=== PATIENT | female | born 1960 | race Caucasian/White ===

== ENCOUNTER 2018-05-23 04:15 | Emergency (ER) | payer BC, OTHER ==
[2018-05-23 04:43] VITALS: BMI 24.3
--- NOTE | 2018-05-23 05:04 | PDOC ---
History of Present Illness - General Chief Complaint: Chest Pain Stated Complaint: CHEST PAIN Time Seen by Provider: 05/23/18 04:19 History Source: Patient Exam Limitations: No Limitations - History of Present Illness Initial Comments: 05/23/18 04:46 Pt is a 58yo F with PMH of hypothyroidism presenting to ED with complaints of chest pain that started at midnight and has kept the pt awake. Pt states chest pain is a sharp substernal intermittent pain that lasts for about 1 minute and radiates to the R breast and sometimes to the back. Not associated with SOB, diaphoresis, radiation to the arms, numbness, tingling, palpitations, headache, neck pain. She has never had chest pain like this before. Pt is not in active chest pain right now, and it has been 30 minutes since she last felt the pain. No significant family history of [place]. No history of blood clotting or GERD. PMH: hypothyroidism PSH: , R ovary and fallopian tube removal, appendectomy Meds: Synthroid Allergies: nkda Social: Quit tobacco in 1997. Denies alcohol, illicit drug use Past History - Past Medical History Allergies/Adverse Reactions: Allergies Allergy/AdvReac Type Severity Reaction Status Date / Time No Known Allergies Allergy Verified 05/23/18 04:43 Home Medications: Ambulatory Orders Levothyroxine [Synthroid -] 88 mcg PO DAILY 05/23/18 Metoprolol Tartrate [Lopressor] 50 mg PO DAILY 05/23/18 - Suicide/Smoking/Psychosocial Hx Smoking History: Never smoked Have you smoked in the past 12 months: No Information on smoking cessation initiated: No Hx Alcohol Use: No Drug/Substance Use Hx: No Review of Systems - Review of Systems Constitutional: No: Chills, Fever, Weakness HEENTM: No: Recent change in vision, Throat Pain Respiratory: No: Cough, Orthopnea, Shortness of Breath, SOB with Exertion Cardiac (ROS): Yes: Chest Pain, Chest Tightness. No: Lightheadedness, Palpitations, Syncope ABD/GI: No: Constipated, Diarrhea, Nausea, Vomiting, Abdominal cramping : No: Dysuria Musculoskeletal: No: Back Pain, Muscle Pain Neurological: No: Headache, Numbness, Tingling Endocrine: Yes: Intolerance to Cold *Physical Exam - Vital Signs Last Vital Signs Temp Pulse Resp BP Pulse Ox 97.9 F 64 19 136/79 4 L 05/23/18 04:41 05/23/18 04:41 05/23/18 04:41 05/23/18 04:41 05/23/18 04:41 - Physical Exam Comments: 05/23/18 05:18 Pt sitting comfortably in stretcher with by side General Appearance: Yes: Nourished, Appropriately Dressed. No: Apparent Distress HEENT: positive: EOMI, DAMARIS, Normal ENT Inspection, Pharynx Normal. negative: Pale Conjunctivae, Scleral Icterus (R), Scleral Icterus (L), Pharyngeal Erythema , Tonsillar Exudate Neck: positive: Trachea midline, Supple. negative: Lymphadenopathy (R), Lymphadenopathy (L) Respiratory/Chest: positive: Lungs Clear, Normal Breath Sounds. negative: Crackles, Rales, Rhonchi, Stridor Cardiovascular: positive: Regular Rhythm, Regular Rate, S1, S2. negative: JVD, Murmur Vascular Pulses: Carotid (R): 2+, Carotid (L): 2+, Dorsalis-Pedis (R): 2+, Doralis-Pedis (L): 2+ Gastrointestinal/Abdominal: positive: Normal Bowel Sounds, Soft. negative: Distended, Guarding, Rebound, Tenderness Musculoskeletal: negative: CVA Tenderness Extremity: positive: Normal Capillary Refill Integumentary: positive: Normal Color, Dry, Warm Neurologic: positive: shot hole shooter II-XII NML intact, Fully Oriented, Alert, Normal Mood/ Affect, Normal Response, Motor Strength 5/5 Heart Score/ECG Review - History History: Slightly suspicious - Electrocardiogram EKG: Normal - Age Age: 45-65 - Risk Factors Risk Factors Heart Score: Yes Smoking History Based on the list above the patient has:: 1-2 risk factors - Troponin Troponin: </= normal limit - Score Heart Score - Total: 2 ED Treatment Course - LABORATORY CBC & Chemistry Diagram: 05/23/18 04:55 05/23/18 04:55 - RADIOLOGY Radiology Studies Ordered: Category Date Time Status CHEST X-RAY PORTABLE* [RAD] Stat Radiology 05/23/18 04:22 Ordered Medical Decision Making - Medical Decision Making 05/23/18 05:10 Pt is a 58yo F with PMH of hypothyroidism presenting to ED with complaints of chest pain that started at midnight and has kept the pt awake. saturating 98% RA DDx: ACS, PNA, PTX, Dissection, Pericarditis, Cholelithiasis Low suspicion for infectious process because pt is hemodynamically stable, afebrile. No significant pmh of htn/hld/dm. symptoms are less consistent with ACS. Will do cardiac workup, ekg to rule out ACS. -Delta trop. -Initial EKG: sinus juancarlos, no T wave inversions, no ST elevations or depressions. Normal EKG. 05/23/18 05:16 Trop: <0.02 HEART: 2 all other labs wnl Awaiting 2nd trop, CXR. If normal, pt can be d/c home. She has PCP follow up and is hemodynamically stable. 05/23/18 07:[address] off to Dr. Yadav *DC/Admit/Observation/Transfer Diagnosis at time of Disposition: Chest pain Qualifiers: Chest pain type: unspecified Qualified Code(s): R07.9 - Chest pain, unspecified - Discharge Dispostion Disposition: HOME Condition at time of disposition: Good - Referrals Referrals: Amanuel Crews MD [Primary Care Provider] - - Patient Instructions Printed Discharge Instructions: DI for Chest Pain Additional Instructions: You were seen here today for evaluation of chest pain. We did some testing here in the ED and everything was normal. Please follow up with Dr. Crews for further evaluation within the next week. Please come back to the ED if: chest pain gets worse, you feel short of breath, you feel lightheaded, you lose consciousness, or if any new concerning symptom develops. Thank you - Post Discharge Activity
[2018-05-23 05:13] LABS: BASO % 0.8 % (0-2.0); EOS % 2.6 % (0-4.5); HEMATOCRIT 39.6 % (32.4-45.2); HEMOGLOBIN 13.8 GM/dL (10.7-15.3); LYMPH % 35.3 % (8-40); MCH 29.1 pg (25.7-33.7); MCHC 34.8 g/dl (32.0-36.0); MEAN CELL VOLUME 83.6 fl (80-96); MEAN PLT VOLUME 7.8 fl (7.5-11.1); MONO % 9.3 % (3.8-10.2); PLATELET COUNT 223 K/MM3 (134-434); RBC 4.73 M/mm3 (3.60-5.2); RDW 12.9 % (11.6-15.6); WHITE BLOOD COUNT 6.7 K/mm3 (4.0-10.0)
[2018-05-23 05:23] LABS: INR 0.96 (0.83-1.09); PROTHROMBIN TIME (PATIENT) 10.9 SEC (9.7-13.0)
[2018-05-23 05:32] LABS: ALBUMIN 3.8 g/dl (3.4-5.0); ALK PHOS 67 U/L (45-117); ANION GAP 5 MMOL/L (8-16); BILIRUBIN,TOTAL 0.3 mg/dL (0.2-1.0); BLOOD UREA NITROGEN 22 mg/dL (7-18); CALCIUM 8.6 mg/dL (8.5-10.1); CHLORIDE 108 mmol/L (98-107); CO2 28 mmol/L (21-32); CREATININE 0.6 mg/dL (0.55-1.02); GLUCOSE,RANDOM 105 mg/dL (74-106); SGOT/AST 11 U/L (15-37); SGPT/ALT 17 U/L (12-78); SODIUM 141 mmol/L (136-145); TOT PROT 6.7 g/dl (6.4-8.2)
--- NOTE | 2018-05-23 05:35 | PDOC ---
Attending Attestation - Resident Resident Name: LaurenKymberly - ED Attending Attestation I have performed the following: I have examined & evaluated the patient, The case was reviewed & discussed with the resident, I agree w/resident's findings & plan - HPI HPI: 05/23/18 05:25 Healthy and active 58-year-old female with history of hypothyroidism on Synthroid presents with chest pain this evening. Patient was in her usual state of normal health, around 12 AM began to experience intermittent episodes of epigastric/lower substernal chest tightness, each episode lasting less than 1 minute but occurring with relative frequency. After 3 hours of the symptoms, she presents for evaluation, now with complete resolution of symptoms. No associated nausea/vomiting/lightheadedness/diaphoresis/palpitations/ shortness of breath. No recent cough or fevers or chills. Patient has no exercise limitations at baseline, she walks 30 minutes on a treadmill every day including yesterday morning without difficulty. She never had a stress test. She has no pertinent family history for ACS or PE, she has no PE risk factors. Does not smoke, does not drink, no illicit drug use - Physicial Exam PE: 05/23/18 05:27 Vital signs normal, O2 sat 99% on room air Well-appearing and comfortable speaking full sentences Heart is regular without murmurs, lungs are clear without crackles No reproducible tenderness, no guarding or rebound, normal abdomen No edema or calf tenderness - Medical Decision Making 05/23/18 05:27 58-year-old female with no other ACS risk factors presents with otherwise atypical chest pain at rest tonight. No risk factors for PE, she is asymptomatic now with normal vital signs are normal exam and a normal EKG. Overall, low risk chest pain with heart score of 1 based on age. Candidate for serial troponin 2 in the emergency department EKG is nonischemic Chest x-ray Reassess. PCP is Dr. Crews, will discuss case with him after second troponin and disposition accordingly, potentially for expedited outpatient cardiology evaluation. Heart Score/ECG Review - History History: Slightly suspicious - Electrocardiogram EKG: Normal - Age Age: 45-65 - Risk Factors Based on the list above the patient has:: No risk factors known - Troponin Troponin: </= normal limit - Score Heart Score - Total: 1 #1 ECG reviewed & interpreted by me at: 04:37 General ECG Interpretation: Sinus Rhythm, Normal Rate (59), Normal Intervals ( qtc 425), No acute ischemic changes (isolated elevation V3 without reciprocal changes)
[2018-05-23 06:27] VITALS: BP 130/76; PULSE 59; TEMP 98.4
--- NOTE | 2018-05-23 09:04 | EKG ---
Test Reason : Blood Pressure : / mmHG Vent. Rate : 059 BPM Atrial Rate : 059 BPM P-R Int : 176 ms QRS Dur : 096 ms QT Int : 430 ms P-R-T Axes : 033 034 026 degrees QTc Int : 425 ms SINUS BRADYCARDIA NONSPECIFIC T WAVE ABNORMALITY Confirmed by GREGORY ZAPIEN MD ([id number]) on 05/23/2018 9:04:12 AM Referred By: Confirmed By:GREGORY ZAPIEN MD
== END 2018-05-23 08:50 | disposition home or self-care (01) ==
LOC: JER 04:15
DX: R07.9 Chest pain, unspecified (principal); E03.9 Hypothyroidism, unspecified
CPT/HCPCS: 36415; 71045-TC-FY; 80053; 82550; 84484; 85025; 85610; 93005; 93010; 99281-25

== ENCOUNTER 2022-01-28 11:19 | Emergency (ER) | payer OTHER ==
[2022-01-28 11:26] VITALS: BP 121/75; PULSE 63; TEMP 98; BMI 24.3
== END 2022-01-28 12:22 | disposition home or self-care (01) ==
LOC: JER 11:19 → JERFT 11:19
PROC: 0HQDXZZ Repair Right Lower Arm Skin, External Approach (ICD-10-PCS; principal; 2022-01-28)
DX: S51.811A Laceration without foreign body of right forearm, initial encounter (principal)
CPT/HCPCS: 12001; 99284-25

== ENCOUNTER 2022-10-05 04:39 | Day surgery (SDC) | payer OTHER ==
[2022-10-03 14:22] VITALS: BMI 24.3
[2022-10-05 13:29] VITALS: TEMP 98
[2022-10-05 14:26] VITALS: BP 135/80; PULSE 75; RESP 13
== END 2022-10-05 15:43 | disposition home or self-care (01) ==
LOC: JASU-ENDO 04:39
PROVIDERS: ATTEND Internal Medicine Gastroenterology
PROC: 0DJD8ZZ Inspection of Lower Intestinal Tract, Via Natural or Artificial Opening Endoscopic (ICD-10-PCS; principal; 2022-10-05 12:00)
DX: Z12.11 Encounter for screening for malignant neoplasm of colon (principal); K64.8 Other hemorrhoids; K59.89 Other specified functional intestinal disorders; Z86.010 Personal history of colon polyps; Z80.0 Family history of malignant neoplasm of digestive organs
CPT/HCPCS: J0875

== ENCOUNTER 2022-10-05 14:58 | Emergency (ER) | payer OTHER ==
[2022-10-05 15:09] VITALS: BP 119/62; PULSE 78; RESP 18; TEMP 98.1; BMI 24.1
[2022-10-05] MEDS ORDERED: DALBAVANCIN HCL 1,500 MG in DEXTROSE 5%-WATER - 500 ML IVPB ONE (17:24)
[2022-10-05] MEDS ORDERED: ACETAMINOPHEN 325 MG TABLET (FP) ONE (17:37)
[2022-10-05] MEDS ORDERED: ACETAMINOPHEN 325 MG TABLET (FP) PO ONE (17:37)
== END 2022-10-05 19:41 | disposition home or self-care (01) ==
LOC: JERFT 14:58
PROC: 3E033GC Introduction of Other Therapeutic Substance into Peripheral Vein, Percutaneous Approach (ICD-10-PCS; principal; 2022-10-05)
DX: M79.672 Pain in left foot (principal)
CPT/HCPCS: 73610-TC-LT-FY; 73630-TC-LT; 99284-25; J0875

== ENCOUNTER 2023-10-03 13:51 | Observation (INO) | payer OTHER ==
[2023-10-03 14:13] VITALS: BMI 23.8
[2023-10-03] MEDS ORDERED: LACTATED RINGERS SOLUTION 1000 ML INFUS.BAG IV ONE (14:35)
[2023-10-03] MEDS ORDERED: ALBUTEROL SO4 2.5/IPRATROPIUM 0.5 INH SOL 3 ML VIAL.NEB. NEB ONE (15:17)
[2023-10-03 15:22] LABS: BASO % 0.5 % (0-2.0); EOS % 0.1 % (0-4.5); HEMATOCRIT 42.3 % (32.4-45.2); HEMOGLOBIN 14.5 GM/dL (10.7-15.3); MCH 28.9 pg (25.7-33.7); MCHC 34.2 g/dl (32.0-36.0); MEAN CELL VOLUME 84.7 fl (80-96); MEAN PLT VOLUME 7.2 fl (7.5-11.1); MONO % 2.8 % (3.8-10.2); NEUT % 78.6 % (42.8-82.8); PLATELET COUNT 205 10^3/uL (134-434); RDW 12.7 % (11.6-15.6)
[2023-10-03 15:30] LABS: INR 1.09 (0.83-1.09); PROTHROMBIN TIME (PATIENT) 12.6 SEC (9.7-13.0)
[2023-10-03 15:32] LABS: ACTIVATED PTT 26.4 SECONDS (25.2-36.5)
[2023-10-03] MEDS: ALBUTEROL SO4 2.5/IPRATROPIUM 0.5 INH SOL 3 ML VIAL.NEB. NEB SCH ×3 (15:40→16:13)
[2023-10-03 15:47] LABS: CALCIUM 9.1 mg/dL (8.5-10.1)
[2023-10-03 15:48] LABS: ALBUMIN 3.7 g/dl (3.4-5.0); BLOOD UREA NITROGEN 12.2 mg/dL (7-18)
[2023-10-03 15:51] LABS: CREATININE 0.7 mg/dL (0.55-1.3)
[2023-10-03 15:53] LABS: BILIRUBIN,TOTAL 0.6 mg/dL (0.2-1); TOT PROT 7.3 g/dl (6.4-8.2)
[2023-10-03] MEDS ORDERED: SODIUM CHLORIDE 0.9% 500 ML INFUS.BAG IV ONE (17:00)
[2023-10-03] MEDS ORDERED: METOCLOPRAMIDE HCL INJECTION 10 MG/2 ML VIAL IVPUSH ONE (17:01)
[2023-10-03] MEDS ORDERED: METOPROLOL TARTRATE 5 MG/5 ML VIAL ONE (17:03)
[2023-10-03] MEDS ORDERED: METOPROLOL TARTRATE 5 MG/5 ML VIAL IVPUSH ONE (17:03)
[2023-10-03] MEDS ORDERED: dilTIAZem HCL 50 MG/10 ML - 10 ML VIAL IVPUSH ONE ×2 (17:07→17:37)
[2023-10-03] MEDS ORDERED: dilTIAZem HCL 125 MG/25 ML - 25 ML VIAL ONE ×2 (17:08→17:38)
[2023-10-03] MEDS ORDERED: IPRATROPIUM BR 0.02% 0.5 MG/2.5 ML VIAL.NEB. NEB PRN (18:04)
[2023-10-03] MEDS ORDERED: methylPREDNISolone NA SUCC 40 MG/1 ML VIAL ONE (18:42)
[2023-10-03] MEDS: methylPREDNISolone NA SUCC 40 MG/1 ML VIAL IVPUSH SCH (18:54)
[2023-10-03] MEDS ORDERED: ASPIRIN 81 MG CHEWABLE TABLETS PO ONE (19:24)
[2023-10-03] MEDS ORDERED: ASPIRIN 81 MG CHEWABLE TABLETS ONE (19:32)
[2023-10-04] MEDS: methylPREDNISolone NA SUCC 40 MG/1 ML VIAL IVPUSH SCH ×2 (01:33→09:48)
[2023-10-04 09:53] LABS: BASO % 0.1 % (0-2.0); HEMATOCRIT 38.5 % (32.4-45.2); HEMOGLOBIN 13.1 GM/dL (10.7-15.3); LYMPH % 14.8 % (8-40); MCH 28.9 pg (25.7-33.7); MCHC 34.1 g/dl (32.0-36.0); MEAN CELL VOLUME 84.5 fl (80-96); MEAN PLT VOLUME 7.5 fl (7.5-11.1); MONO % 2.9 % (3.8-10.2); NEUT % 82.2 % (42.8-82.8); PLATELET COUNT 239 10^3/uL (134-434); RBC 4.55 M/mm3 (3.60-5.2); RDW 13.2 % (11.6-15.6); WHITE BLOOD COUNT 14.9 K/mm3 (4.0-10.0)
[2023-10-04] MEDS ORDERED: LEVOTHYROXINE NA 88 MCG TABLET (FP) PO SCH (10:00)
[2023-10-04] MEDS ORDERED: ENOXAPARIN NA (PORCINE) 40 MG/0.4 ML DISP.SYRIN SQ SCH (10:00)
[2023-10-04] MEDS ORDERED: TIMOLOL MALEATE OP SCH (10:00)
[2023-10-04] MEDS ORDERED: CHOLECALCIFEROL (VIT D3) 1,000 UNIT (25 MCG) TABLET PO SCH (10:00)
[2023-10-04] MEDS ORDERED: PATIENT'S OWN MEDICATION (NON-FORMULARY) (Bimatoprost [Lumigan] 7.5 ML Drops) IO SCH (10:00)
[2023-10-04 10:19] LABS: POTASSIUM 4.4 mmol/L (3.5-5.1)
[2023-10-04 10:23] LABS: ALBUMIN 3.3 g/dl (3.4-5.0); BLOOD UREA NITROGEN 14.3 mg/dL (7-18); CALCIUM 9.4 mg/dL (8.5-10.1); MAGNESIUM 2.4 mg/dL (1.8-2.4)
[2023-10-04 10:27] LABS: CREATININE 0.7 mg/dL (0.55-1.3)
[2023-10-04 10:28] LABS: BILIRUBIN,TOTAL 0.4 mg/dL (0.2-1); TOT PROT 6.6 g/dl (6.4-8.2)
[2023-10-04] MEDS ORDERED: METOPROLOL TARTRATE 25 MG TABLET (FP) PO SCH (10:30)
[2023-10-04] MEDS ORDERED: ACETAMINOPHEN 1000 MG/100 ML BAG IVPB PRN (12:06)
[2023-10-04] MEDS ORDERED: TIMOLOL 0.25% OPHTHALMIC SOL 5 ML BOTTLE OU SCH (15:00)
[2023-10-04 15:14] VITALS: BP 112/66; PULSE 62; RESP 17; TEMP 97.8
[2023-10-04] MEDS ORDERED: LATANOPROST 0.005% OPHTH SOLN 2.5ML BOTTLE OU SCH (22:20)
== END 2023-10-04 18:31 | disposition home or self-care (01) ==
LOC: JER 13:51 → JERBED 16:12 → J4S 23:23
PROVIDERS: ADMIT Internal Medicine; ATTEND Internal Medicine
PROC: 3E033GC Introduction of Other Therapeutic Substance into Peripheral Vein, Percutaneous Approach (ICD-10-PCS; principal; 2023-10-03)
PROC: 3E0337Z Introduction of Electrolytic and Water Balance Substance into Peripheral Vein, Percutaneous Approach (ICD-10-PCS; 2023-10-03)
PROC: 3E0F7SF Introduction of Other Gas into Respiratory Tract, Via Natural or Artificial Opening (ICD-10-PCS; 2023-10-03)
DX: J21.0 Acute bronchiolitis due to respiratory syncytial virus (principal); I48.91 Unspecified atrial fibrillation; E03.9 Hypothyroidism, unspecified; Z86.16 Personal history of COVID-19
CPT/HCPCS: 0241U-QW; 36415; 71046-TC-FY; 80053; 83735; 84439; 84443; 84484; 85025; 85610; 85730; 87070; 87651; 93005; 93010; 93306-TC; 99285-25; G0378